=== PATIENT | female | born 1995 | race Caucasian/White ===

== ENCOUNTER 2023-03-08 08:49 | Emergency (ER) | payer MEDICAID ==
[~2023-03-08] VITALS: Ht 170 cm; Wt 89.0 kg
[~2023-03-08 08:49] MED LIST: AZIT-21 PO
--- NOTE | 2023-03-08 09:13 | ED General ---
General Chief Complaint: Cough/Cold/Flu Symptoms Stated Complaint: BREATHING ISSUES | SORE THROAT Nursing Triage Note: PT AMB TO RM 6 WITH C/O SORE THROAT AND BLISTERS IN MOUTH FOR 2 DAYS. PT DENIES ANY MEDICATIONS Source of Information: Patient Exam Limitations: No Limitations History of Present Illness Date Seen by Provider: Mar 08, 2023 Time Seen by Provider: 09:13 Initial Comments This 27-year-old young lady presents to the emergency room with multiple complaints. First, she complains of blisters in her mouth, tongue and sore throat with throat swelling over the past few days. Symptoms have actually improved today. There are no significant findings on exam regarding her throat and tongue. She reported having COPD and being out of her albuterol inhaler. She had quit smoking but recently started smoking heavily again. She has history of HPV and history of gonorrhea infections. She reports having a prior stillbirth. She does not believe she is presently. She denies any fever. She has had cough. She has been had mild runny nose. She reports ear popping and drainage. She states her lungs "feel full." LMP was a couple of weeks ago. She had significant pain with her menstrual cycle and reports pink and green vaginal discharge outside of her menstrual flow. Pain has since resolved. She has had some dysuria. She is from out of town and is in town visiting for a family reunion. She is staying with a cousin. Allergies and Home Medications Allergies Coded Allergies: codeine (Unverified Allergy, Unknown, 08/16/14) morphine (Unverified Allergy, Unknown, 08/16/14) Patient Home Medication List Home Medication List Reviewed: Yes Albuterol Sulfate (Ventolin Hfa) 1 Puff Puff, 2 PUFF INH Q4H PRN for WHEEZING Prescribed by: LISSETT MONTOYA on 03/08/23 1128 Azithromycin (Zithromax Tab) 250 Mg Tab, 1 TAB PO DAILY Prescribed by: AMOS JANSEN on 08/16/142207 Review of Systems Review of Systems Constitutional: no symptoms reported EENTM: see HPI Respiratory: see HPI Cardiovascular: no symptoms reported Gastrointestinal: see HPI Genitourinary: see HPI : No LMP: Feb 28, 2023 Musculoskeletal: no symptoms reported Skin: no symptoms reported Psychiatric/Neurological: No Symptoms Reported Hematologic/Lymphatic: No Symptoms Reported Immunological/Allergic: no symptoms reported Past Oyepjsb-Facuhg-Pcertg Hx Patient Social History Tobacco Use?: Yes Tobacco type used: Cigarettes Smoking Status: Current Everyday Smoker Substance use?: Yes Substance type: Hallucinogens, Marijuana Alcohol Use?: Yes Alcohol Frequency: Once in a while Pt feels they are or have been: No Immunizations Up To Date Tetanus Booster (TDap): Less than 5yrs PED Vaccines UTD: Yes Seasonal Allergies Seasonal Allergies: Yes Past Medical History Surgery/Hospitalization HX: HPV, COPD TONSILS Surgeries: Yes Tonsillectomy Respiratory: Yes (Heavy tobaccoism, bronchitis) COPD Cardiac: No Neurological: No : No Last Menstrual Period: Feb 28, 2023 Reproductive Disorders: No Sexually Transmitted Disease: Yes (past hx chlamydia, gonorrhea, HPV) HIV/AIDS: No Gastrointestinal: No Musculoskeletal: No Endocrine: No HEENT: No Cancer: No Psychosocial: Yes (Polysubstance abuse, self cutting behaviors) Anxiety, PTSD, Bipolar, Depression Physical Exam Vital Signs Vital Signs - First Documented 03/08/23 08:55 Temp 36.5 Pulse 83 Resp 14 B/P (MAP) 130/71 (90) Pulse Ox 100 O2 Delivery Room Air Capillary Refill : Height, Weight, BMI Height: 5'7.00" Weight: 171lbs. oz. [id number]; 30.00 BMI Method:Stated General Appearance: No Apparent Distress, WD/WN HEENT: PERRL/EOMI, TMs Normal, Normal ENT Inspection, Pharynx Normal Neck: Normal Inspection, Supple; No Lymphadenopathy (L), No Lymphadenopathy (R) Respiratory: Lungs Clear, Normal Breath Sounds, No Accessory Muscle Use, No Respiratory Distress; No Crackles, No Stridor, No Wheezing Cardiovascular: Regular Rate, Rhythm, No Edema, No Murmur Gastrointestinal: Normal Bowel Sounds, Non Tender, Soft; No Distended Genital/Rectal: Normal Genital Exam, Tenderness (Mild cervical motion tenderness), Other (No inflammatory changes of the cervix or vaginal wall. External genitalia normal. Greenish discharge from cervical os.) Extremity: Normal Inspection, No Pedal Edema Neurologic/Psychiatric: Alert, Oriented x3, No Motor/Sensory Deficits, Normal Mood/Affect, skein yard drier II-XII Norm as Tested Skin: Normal Color, Warm/Dry Progress/Results/Core Measures Suspected Sepsis SIRS Temperature: Pulse: 83 Respiratory Rate: 14 Blood Pressure 130 /71 Mean: 90 Results/Orders Lab Results Laboratory Tests Test 03/08/23 09:14 03/08/23 09:16 03/08/23 10:24 Range/Units Urine Color YELLOW Urine Clarity CLEAR Urine pH 6.0 5-9 Urine Specific [place] <=1.005 1.016-1.022 Urine Protein NEGATIVE NEGATIVE Urine Glucose (UA) NEGATIVE NEGATIVE Urine Ketones NEGATIVE NEGATIVE Urine Nitrite NEGATIVE NEGATIVE Urine Bilirubin NEGATIVE NEGATIVE Urine Urobilinogen 0.2 < = 1.0 MG/DL Urine Leukocyte Esterase 1+ H NEGATIVE Urine RBC (Auto) TRACE-I H NEGATIVE Urine RBC RARE /HPF Urine WBC 0-2 /HPF Urine Squamous Epithelial Cells RARE /HPF Urine Crystals NONE /LPF Urine Bacteria TRACE /HPF Urine Casts NONE /LPF Urine Mucus NEGATIVE /LPF Urine Culture Indicated NO Influenza Type A (RT-PCR) Not Detected Not Detecte Influenza Type B (RT-PCR) Not Detected Not Detecte SARS-CoV-2 RNA (RT-PCR) Not Detected Not Detecte Group A Streptococcus Screen NEGATIVE NEGATIVE Chlamydia DNA Probe Detected H Not Detected Neisseria gonorrhoeae DNA Probe Not Detected Not Detected Micro Results Microbiology 03/08/23 Genital Culture - Preliminary, Resulted Usual Vaginal Nathalie 03/08/23 Wet Prep - Final, Resulted 03/08/23 Throat Culture - Final, Complete No Beta Strep isolated My Orders Orders - LISSETT KARIMI MD Rapid Strep A Screen (03/08/23 09:13) Covid 19 Inhouse Test (03/08/23 09:13) Influenza A And B By Pcr (03/08/23 09:13) Ua Culture If Indicated (03/08/23 09:13) Urine Bedside (03/08/23 09:14) Throat Culture Strep A Confirm (03/08/23 09:16) Wet Prep (03/08/23 09:41) Neisseria Gonorrhea Swab (03/08/23 09:41) Genital Culture (03/08/23 09:41) Chlamydia Trachomatis Swab (03/08/23 09:41) Ceftriaxone Iv/Im (Ceftriaxone Iv/Im) (03/08/23 10:45) Lidocaine 1% Inj 20 Ml (Xylocaine 1% Inj (03/08/23 10:45) Azithromycin Tablet (Azithromycin Tabl (03/08/23 10:36) Lidocaine 1% Inj 10 Ml (Xylocaine 1% Inj (03/08/23 10:41) Im Injection Antibiotic Ed (03/08/23 ) Medications Given in ED Vital Signs/I&O 03/08/23 03/08/23 08:55 11:43 Temp 36.5 36.5 Pulse 83 74 Resp 14 14 B/P (MAP) 130/71 (90) 127/64 Pulse Ox 100 100 O2 Delivery Room Air Room Air Capillary Refill : Blood Pressure Mean: 90 Progress Note #1: Time: 09:13 Progress Note Nursing report received after triage. Swabs and urinalysis have been ordered to initiate care. Progress Note #2: Progress Note Patient was interviewed and examined at 0925. Flu, COVID and rapid strep swabs were all negative. Urinalysis was reviewed and interpreted as unremarkable by me. Parisa Beltran, PA student, performed pelvic exam under my direct supervision. Swabs were obtained. Greenish cervical discharge was noted. Preliminary micro scope exam revealed WBC without other abnormalities. Patient was empirically treated with Rocephin and azithromycin. Patient commented multiple times that she felt short of breath but she had excellent air movement without any crackles, wheezing, or stridor on exam. She did not bring her albuterol inhaler with her when she left home. A replacement inhaler was prescribed. She did not need any immediate respiratory treatments. Pelvic exam was chaperoned by Clara España, female ER staff member and myself. Departure Impression Primary Impression: Vaginal discharge Additional Impressions: Cough Qualified Codes: R05.3 - Chronic cough Pharyngitis Qualified Codes: J02.9 - Acute pharyngitis, unspecified COPD (chronic obstructive pulmonary disease) Qualified Codes: J44.9 - Chronic obstructive pulmonary disease, unspecified Disposition: 01 HOME, SELF-CARE Condition: Stable Departure-Patient Inst. Decision time for Depature: 11:25 Referrals: [facility] (PCP/Family) Primary Care Physician Patient Instructions: Exacerbation of COPD, Vaginal discharge Add. Discharge Instructions: Continue using your inhaled medications for COPD maintenance. An albuterol rescue inhaler was sent to the pharmacy for you. You need to follow-up with a primary care provider regarding your vaginal culture results. This should be available early next week. Abstain from any type of sexual activity until results are known. There were no additional findings on the microscopic evaluation of your pelvic exam in the ER. Work on quitting smoking as rapidly as possible to improve your breathing and cough. Follow-up with a primary care provider soon as possible for a follow-up on this ER visit. Return to the emergency room if you have worsening symptoms despite following these instructions. All discharge instructions reviewed with patient and/or family. Voiced understanding. Scripts Albuterol Sulfate (VENTOLIN HFA) 1 Puff Puff 2 PUFF INH Q4H PRN for WHEEZING, #1 EA 1 PUFF = 90 MCG Prov: LISSETT KARIMI MD 03/08/23 LISSETT KARIMI MD Mar 08, 2023 09:13
[2023-03-08 09:24] LABS: BILIRUBIN,URINE NEGATIVE (NEGATIVE); CLARITY,URINE CLEAR; COLOR,URINE YELLOW; GLUCOSE, URINE (UA) NEGATIVE (NEGATIVE); KETONES,URINE NEGATIVE (NEGATIVE); LEUKOCYTE ESTERASE ,URINE 1+ (NEGATIVE); NITRITE,URINE NEGATIVE (NEGATIVE); PROTEIN,URINE NEGATIVE (NEGATIVE)
[2023-03-08 09:38] LABS: BACTERIA,URINE TRACE /HPF; RBC,URINE RARE /HPF; SQUAMOUS EPITHELIAL CELL,UR RARE /HPF; WBC,URINE 0-2 /HPF
[2023-03-08] MEDS ORDERED: AZITHROMYCIN 250 MG TABLET PO STA (10:36)
[2023-03-08] MEDS ORDERED: LIDOCAINE 1% INJ 10 ML VIAL ONE (10:41)
[2023-03-08] MEDS ORDERED: cefTRIAXone 1,000 MG VIAL IV/IM IM ONE (10:45)
[2023-03-08] MEDS ORDERED: LIDOCAINE 1% INJ 20 ML VIAL INJ ONE (10:45)
[2023-03-08] MEDS ORDERED: RT-ALBUINH INH (11:28)
[2023-03-08 11:43] VITALS: BP 127/64
== END 2023-03-08 11:43 | disposition home or self-care (01) ==
LOC: EDUNIT# 08:49 → ER 08:51
DX: J44.9 Chronic obstructive pulmonary disease, unspecified (principal); J02.9 Acute pharyngitis, unspecified; N89.8 Other specified noninflammatory disorders of vagina; F17.210 Nicotine dependence, cigarettes, uncomplicated; Z20.822 Contact with and (suspected) exposure to COVID-19
CPT/HCPCS: 36415; 81000; 84703; 87070; 87205; 87210; 87430; 87491; 87591; 87636; 96372; 99284